=== PATIENT | female | born 1930 | race Caucasian/White ===

== ENCOUNTER 2019-03-08 10:25 | Inpatient (IN) | payer MEDICARE ==
[~2019-03-08] VITALS: Ht 162.6 cm; Wt 71.2 kg
[2019-03-08] MEDS ORDERED: TETANUS AND DIPHTHERIA TOX/PF 0.5 ML DISP.SYRIN. VAX IM ONE (10:45)
--- NOTE | 2019-03-08 10:56 | RAD ---
Portable chest, 03/08/2019: HISTORY: Syncope, fall The heart is at the upper limits of normal in size. There is calcific plaquing the aorta. The pulmonary vascularity is normal. No pulmonary infiltrate is seen. There is no evidence of pleural fluid. The bony structures are demineralized. Scattered degenerative changes are present in the spine and at both shoulders. IMPRESSION: No acute cardiopulmonary abnormality is detected. Electronically signed by: Festus Max MD (03/08/2019 10:52 AM) [facility]
[2019-03-08 11:29] LABS: CALCIUM 8.9 mg/dL (8.5-10.1); GFR 52.2; POTASSIUM 3.9 mmol/L (3.5-5.1)
[2019-03-08 11:33] LABS: BASO # 0.1 x10^3/uL (0.0-0.2); BASO % 1 % (0-3); EOS # 0.3 x10^3/uL (0.0-0.7); EOS % 5 % (0-3); HEMATOCRIT 40.5 % (36.0-47.0); HEMOGLOBIN 13.3 g/dL (12.0-15.5); LYMPH # 0.7 x10^3/uL (1.0-4.8); LYMPH % 10 % (24-48); MEAN CORPUSCULAR HEMOGLOBIN 29 pg (25-35); MEAN CORPUSCULAR HGB CONC 33 g/dL (31-37); MEAN CORPUSCULAR VOLUME 90 fL (79-100); MONO # 0.3 x10^3/uL (0.0-1.1); MONO % 5 % (0-9); NEUT # 5.5 x10^3uL (1.8-7.7); NEUT % 79 % (31-73); PLATELET COUNT 148 x10^3/uL (140-400); RED BLOOD COUNT 4.52 x10^6/uL (3.50-5.40); RED CELL DISTRIBUTION WIDTH 14.2 % (11.5-14.5); WHITE BLOOD COUNT 6.9 x10^3/uL (4.0-11.0)
[2019-03-08 11:37] LABS: ALBUMIN 3.5 g/dL (3.4-5.0); ALBUMIN/GLOBULIN RATIO 1.1 (1.0-1.7); TOTAL BILIRUBIN 0.7 mg/dL (0.2-1.0); TOTAL PROTEIN 6.7 g/dL (6.4-8.2)
--- NOTE | 2019-03-08 12:19 | RAD ---
CT of the head without contrast, 03/08/2019: HISTORY: Head and neck trauma There is moderate cerebral atrophy. The ventricles are within normal limits in size. There is no shift of the midline structures. There is no evidence of acute intracranial hemorrhage or mass effect. Faint bilateral deep white matter lucencies are noted compatible with chronic ischemic change. No abnormal extra-axial fluid collection or mass is seen. IMPRESSION: 1. Faint bilateral deep white matter lucencies compatible with chronic ischemic change. 2. No acute intracranial abnormality is detected. CT of the facial bones without contrast, 03/08/2019: Noncontrast scans were obtained with multiplanar reconstructions produced. No facial bone fracture is identified. There is mild mucosal thickening in the maxillary sinuses. No free fluid is evident in the sinuses. The orbital contents are unremarkable. IMPRESSION: No acute facial bone abnormality is detected. PQRS Compliance Statement: One or more of the following individualized dose reduction techniques were utilized for this examination: 1. Automated exposure control 2. Adjustment of the mA and/or kV according to patient size 3. Use of iterative reconstruction technique Electronically signed by: Festus Max MD (03/08/2019 12:16 PM) [facility]
--- NOTE | 2019-03-08 12:19 | EKG ---
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
--- NOTE | 2019-03-08 12:24 | RAD ---
CT of the cervical spine without contrast, 03/08/2019: HISTORY: Fall, injury Noncontrast scans were obtained with multiplanar reconstructions produced. There is a mild left convexity cervical scoliosis. There is mild disc space narrowing at multiple levels with mild scattered marginal spurs. There are mild degenerative changes involving scattered facet joints bilaterally. There is fusion of the right facet joints at C3-4. The posterior disc margins are not adequately visualized due to artifacts. No fracture or dislocation is identified. No high-grade central spinal stenosis is evident. There is mild calcific plaquing at the carotid bifurcations. IMPRESSION: 1. Mild cervical scoliosis. 2. Mild multilevel degenerative change. 3. No acute bony abnormality is detected. PQRS Compliance Statement: One or more of the following individualized dose reduction techniques were utilized for this examination: 1. Automated exposure control 2. Adjustment of the mA and/or kV according to patient size 3. Use of iterative reconstruction technique Electronically signed by: Festus Max MD (03/08/2019 12:21 PM) [facility]
--- NOTE | 2019-03-08 12:47 | PHYS DOC ---
Past Medical History Past Medical History: Anxiety, Hypothyroid Past Surgical History: Cholecystectomy, Hysterectomy, Other Additional Past Surgical Histo: TUBAL Alcohol Use: None Drug Use: None Adult General Chief Complaint Chief Complaint: MECHANICAL FALL HPI HPI 88-year-old female presents after syncopal episode. Patient states she was at the sink washing dishes and the next thing she knew she had fallen on the ground. She didn't hit her head and neck. She complains of a headache and neck pain. She denies any lateralizing weakness. She does have some scrapes on her arms from broken glass that was found next to her. I'm unsure exactly how long she laid in the floor but she did come in via EMS. She is not had any fever chills or sweats that she recalls. She denies any preceding symptoms such as severe headache chest pain palpitations or shortness of breath. She does not recall passing out like this in the past.[] Review of Systems Review of Systems Constitutional: Denies fever or chills [] Eyes: Denies change in visual acuity, redness, or eye pain [] HENT: Denies nasal congestion or sore throat [] Respiratory: Denies cough or shortness of breath [] Cardiovascular: No additional information not addressed in HPI [] GI: Denies abdominal pain, nausea, vomiting, bloody stools or diarrhea [] : Denies dysuria or hematuria [] Musculoskeletal: Denies back pain or joint pain [] Integument: Per history of present illness Neurologic: Denies headache, focal weakness or sensory changes [] Endocrine: Denies polyuria or polydipsia [] All other systems were reviewed and found to be within normal limits, except as documented in this note. Current Medications Current Medications Current Medications Medications (Trade) Dose Ordered Sig/Sylvia Start Time Stop Time Status Last Admin Dose Admin Tetanus/ Diphtheria Toxoids (Tenivac Syringe) 0.5 ml ONCE ONCE 03/08/19 10:45 03/08/19 11:23 DC 03/08/19 12:04 0.5 ML Allergies Allergies Allergies Coded Allergies Type Severity Reaction Last Updated Verified Penicillins Allergy Unknown PATIENT STATES IT WAS YEARS AGO AND SHE DOES NOT REMEMBER 03/08/19 Yes Physical Exam Physical Exam Constitutional: Well developed, well nourished, no acute distress, non-toxic appearance. [] HENT: Normocephalic, atraumatic, bilateral external ears normal, oropharynx ricki st, no oral exudates, nose normal. [] Eyes: PERRLA, EOMI, conjunctiva normal, no discharge. [] Neck: Normal range of motion, no tenderness, supple, no stridor. [] Cardiovascular:Heart rate regular rhythm, no murmur [] Lungs & Thorax: Bilateral breath sounds clear to auscultation [] Abdomen: Bowel sounds normal, soft, no tenderness, no masses, no pulsatile masses. [] Skin: Multiple minor scrapes and skin abrasions to both arms left greater than right[] Back: No tenderness, no CVA tenderness. [] Extremities: No tenderness, no cyanosis, no clubbing, ROM intact, no edema. [] Neurologic: Alert and oriented to person place and time no lateralizing neurologic weakness. [] Psychologic: Affect normal, judgement normal, mood normal. [] Current Patient Data Vital Signs Vital Signs Date Time Temp Pulse Resp B/P (MAP) Pulse Ox O2 Delivery O2 Flow Rate FiO2 03/08/19 10:25 97.5 78 14 184/84 (117) 96 Room Air 97.5 Lab Values Laboratory Tests Test 03/08/19 11:06 White Blood Count 6.9 x10^3/uL (4.0-11.0) Red Blood Count 4.52 x10^6/uL (3.50-5.40) Hemoglobin 13.3 g/dL (12.0-15.5) Hematocrit 40.5 % (36.0-47.0) Mean Corpuscular Volume 90 fL (79-100) Mean Corpuscular Hemoglobin 29 pg (25-35) Mean Corpuscular Hemoglobin Concent 33 g/dL (31-37) Red Cell Distribution Width 14.2 % (11.5-14.5) Platelet Count 148 x10^3/uL (140-400) Neutrophils (%) (Auto) 79 % (31-73) H Lymphocytes (%) (Auto) 10 % (24-48) L Monocytes (%) (Auto) 5 % (0-9) Eosinophils (%) (Auto) 5 % (0-3) H Basophils (%) (Auto) 1 % (0-3) Neutrophils # (Auto) 5.5 x10^3uL (1.8-7.7) Lymphocytes # (Auto) 0.7 x10^3/uL (1.0-4.8) L Monocytes # (Auto) 0.3 x10^3/uL (0.0-1.1) Eosinophils # (Auto) 0.3 x10^3/uL (0.0-0.7) Basophils # (Auto) 0.1 x10^3/uL (0.0-0.2) Sodium Level 142 mmol/L (136-145) Potassium Level 3.9 mmol/L (3.5-5.1) Chloride Level 104 mmol/L (98-107) Carbon Dioxide Level 27 mmol/L (21-32) Anion Gap 11 (6-14) Blood Urea Nitrogen 17 mg/dL (7-20) Creatinine 1.0 mg/dL (0.6-1.0) Estimated GFR (Cockcroft-Gault) 52.2 BUN/Creatinine Ratio 17 (6-20) Glucose Level 113 mg/dL (70-99) H Calcium Level 8.9 mg/dL (8.5-10.1) Total Bilirubin 0.7 mg/dL (0.2-1.0) Aspartate Amino Transferase (AST) 21 U/L (15-37) Alanine Aminotransferase (ALT) 20 U/L (14-59) Alkaline Phosphatase 65 U/L (46-116) Creatine Kinase 45 U/L (26-192) Troponin I Quantitative < 0.017 ng/mL (0.000-0.055) Total Protein 6.7 g/dL (6.4-8.2) Albumin 3.5 g/dL (3.4-5.0) Albumin/Globulin Ratio 1.1 (1.0-1.7) Laboratory Tests 03/08/19 11:06 Laboratory Tests 03/08/19 11:06 EKG EKG [EKG: Normal sinus rhythm rate of [address]-T changes] Radiology/Procedures Radiology/Procedures []CT of the cervical spine without contrast, 03/08/2019: HISTORY: Fall, injury Noncontrast scans were obtained with multiplanar reconstructions produced. There is a mild left convexity cervical scoliosis. There is mild disc space narrowing at multiple levels with mild scattered marginal spurs. There are mild degenerative changes involving scattered facet joints bilaterally. There is fusion of the right facet joints at C3-4. The posterior disc margins are not adequately visualized due to artifacts. No fracture or dislocation is identified. No high-grade central spinal stenosis is evident. There is mild calcific plaquing at the carotid bifurcations. IMPRESSION: 1. Mild cervical scoliosis. 2. Mild multilevel degenerative change. 3. No acute bony abnormality is detected. Impressions: PROCEDURE: CT HEAD AND MAXILLOFACIAL WO CT of the head without contrast, 03/08/2019: HISTORY: Head and neck trauma There is moderate cerebral atrophy. The ventricles are within normal limits in size. There is no shift of the midline structures. There is no evidence of acute intracranial hemorrhage or mass effect. Faint bilateral deep white matter lucencies are noted compatible with chronic ischemic change. No abnormal extra-axial fluid collection or mass is seen. IMPRESSION: 1. Faint bilateral deep white matter lucencies compatible with chronic ischemic change. 2. No acute intracranial abnormality is detected. Course & Med Decision Making Course & Med Decision Making Pertinent Labs and Imaging studies reviewed. (See chart for details) [ED course: Evaluation reveals an 88-year-old female that had a syncopal episode. Preliminary workup looks negative. CT of her head and neck and maxillofacial was negative.] Dragon Disclaimer Dragon Disclaimer This electronic medical record was generated, in whole or in part, using a voice recognition dictation system. Departure Departure Impression: Primary Impression: Syncope and collapse Disposition: 09 ADMITTED INPATIENT Admitting Physician: Liat Zaldivar Condition: STABLE Referrals: MAK GONZALEZ Jr, MD (PCP) JOSE BARTHOLOMEW DO March 08, 2019 12:46
[2019-03-08] MEDS ORDERED: cloNIDine HCL 0.1 MG TABLET PO PRN (13:00)
[2019-03-08] MEDS ORDERED: hydrALAZINE 20 MG/ML VIAL. IVP PRN (13:30)
--- NOTE | 2019-03-08 13:31 | PDOC1 ---
History and Physical Date of Admission Date of Admission DATE: 03/08/19 TIME: 13:24 Identification/Chief Complaint Chief Complaint Passed out and fell at home while washing the dishes Source Source: Caregiver, Chart review, Patient History of Present Illness History of Present Illness 88-year-old female who lives alone at home and uses no assistive device of ambulation, was washing dishes, no prodrome and she felt weak and passed out and LOC. Some minor skin abrasions all over, minor bleeding unsure from IV site. NOt on blood thinners at home She did bite her lip. She denies any presyncopal symptoms. She was unable to get up and called EMS. She's not able to get up because of weakness. We are unsure if she had broken bones but does not seem likely. She only takes 2 medications at home daily Zoloft and thyroid medication. No known arrhythmia or CAD. She does not complain of any symptoms afterwards just weakness There Was no loss of bowel or bladder incontinence but she does have a lower lip laceration Blood work and chest x-ray cervical neck CT head CT are so far unremarkable. Patient admitted for syncope workup. Daughter at bedside and agreeable with admission Blood pressure 180s currently at the ER Past Medical History Psych: Anxiety, Depression Endocrine: Hypothyroidism Past Surgical History Past Surgical History: No pertinent history Family History Family History: No Significant Social History Smoke: No ALCOHOL: none Drugs: None Current Problem List Problem List Problems Medical Problems: (1) Syncope and collapse Status: Acute Current Medications Current Medications Current Medications Tetanus/ Diphtheria Toxoids (Tenivac Syringe) 0.5 ml ONCE ONCE VAX IM Last administered on 03/08/19at 12:04; Start 03/08/19 at 10:45; Stop 03/08/19 at 11:23; Status DC Sodium Chloride 1,000 ml @ 100 mls/hr Q10H IV ; Start 03/08/19 at 12:47; Stop 03/09/19 at 12:46 Clonidine HCl (Catapres) 0.1 mg PRN Q1HR PRN PO HYPERTENSION, SEE COMMENTS; Start 03/08/19 at 13:00 Allergies Allergies: Coded Allergies: Penicillins (Verified Allergy, Unknown, PATIENT STATES IT WAS YEARS AGO AND SHE DOES NOT REMEMBER, 03/08/19) ROS Review of System generalized weakness Physical Exam General: No acute distress, Other (but weak looking) HEENT: PERRLA, EOMI Lungs: Clear to auscultation, Normal air movement Heart: S1S2, RRR, no thrills, no rubs, no gallops, no murmurs, murmurs, no jug vein distention Cardiovascular: S1, S2 Breasts: Normal, Rt breast nml w/o mass, Lt breast nml w/o mass, Nipples normal Abdomen: Normal bowel sounds, Soft, No tenderness, No hepatosplenomegaly, No masses Male Genitals Exam: normal genitalia, normal prostate Rectal Exam: not examined PELVIC: Nml ext genitalia Extremities: No clubbing, No cyanosis, No edema, Normal pulses, No tenderness/swelling Skin: Other (senile skin turgor, some minor skin abrasions ) Neuro: Normal speech, Normal tone, Sensation intact, Cranial nerves 3-12 NL, Reflexes 2+, Other Psych/Mental Status: Mental status NL, Mood NL Vitals Vitals Vital Signs Date Time Temp Pulse Resp B/P (MAP) Pulse Ox O2 Delivery O2 Flow Rate FiO2 03/08/19 10:25 97.5 78 14 184/84 (117) 96 Room Air 97.5 Labs Labs Laboratory Tests Test 03/08/19 11:06 White Blood Count 6.9 x10^3/uL (4.0-11.0) Red Blood Count 4.52 x10^6/uL (3.50-5.40) Hemoglobin 13.3 g/dL (12.0-15.5) Hematocrit 40.5 % (36.0-47.0) Mean Corpuscular Volume 90 fL (79-100) Mean Corpuscular Hemoglobin 29 pg (25-35) Mean Corpuscular Hemoglobin Concent 33 g/dL (31-37) Red Cell Distribution Width 14.2 % (11.5-14.5) Platelet Count 148 x10^3/uL (140-400) Neutrophils (%) (Auto) 79 % (31-73) Lymphocytes (%) (Auto) 10 % (24-48) Monocytes (%) (Auto) 5 % (0-9) Eosinophils (%) (Auto) 5 % (0-3) Basophils (%) (Auto) 1 % (0-3) Neutrophils # (Auto) 5.5 x10^3uL (1.8-7.7) Lymphocytes # (Auto) 0.7 x10^3/uL (1.0-4.8) Monocytes # (Auto) 0.3 x10^3/uL (0.0-1.1) Eosinophils # (Auto) 0.3 x10^3/uL (0.0-0.7) Basophils # (Auto) 0.1 x10^3/uL (0.0-0.2) Sodium Level 142 mmol/L (136-145) Potassium Level 3.9 mmol/L (3.5-5.1) Chloride Level 104 mmol/L (98-107) Carbon Dioxide Level 27 mmol/L (21-32) Anion Gap 11 (6-14) Blood Urea Nitrogen 17 mg/dL (7-20) Creatinine 1.0 mg/dL (0.6-1.0) Estimated GFR (Cockcroft-Gault) 52.2 BUN/Creatinine Ratio 17 (6-20) Glucose Level 113 mg/dL (70-99) Calcium Level 8.9 mg/dL (8.5-10.1) Total Bilirubin 0.7 mg/dL (0.2-1.0) Aspartate Amino Transf (AST/SGOT) 21 U/L (15-37) Alanine Aminotransferase (ALT/SGPT) 20 U/L (14-59) Alkaline Phosphatase 65 U/L (46-116) Creatine Kinase 45 U/L (26-192) Troponin I Quantitative < 0.017 ng/mL (0.000-0.055) Total Protein 6.7 g/dL (6.4-8.2) Albumin 3.5 g/dL (3.4-5.0) Albumin/Globulin Ratio 1.1 (1.0-1.7) Laboratory Tests Test 03/08/19 11:06 White Blood Count 6.9 x10^3/uL (4.0-11.0) Red Blood Count 4.52 x10^6/uL (3.50-5.40) Hemoglobin 13.3 g/dL (12.0-15.5) Hematocrit 40.5 % (36.0-47.0) Mean Corpuscular Volume 90 fL (79-100) Mean Corpuscular Hemoglobin 29 pg (25-35) Mean Corpuscular Hemoglobin Concent 33 g/dL (31-37) Red Cell Distribution Width 14.2 % (11.5-14.5) Platelet Count 148 x10^3/uL (140-400) Neutrophils (%) (Auto) 79 % (31-73) Lymphocytes (%) (Auto) 10 % (24-48) Monocytes (%) (Auto) 5 % (0-9) Eosinophils (%) (Auto) 5 % (0-3) Basophils (%) (Auto) 1 % (0-3) Neutrophils # (Auto) 5.5 x10^3uL (1.8-7.7) Lymphocytes # (Auto) 0.7 x10^3/uL (1.0-4.8) Monocytes # (Auto) 0.3 x10^3/uL (0.0-1.1) Eosinophils # (Auto) 0.3 x10^3/uL (0.0-0.7) Basophils # (Auto) 0.1 x10^3/uL (0.0-0.2) Sodium Level 142 mmol/L (136-145) Potassium Level 3.9 mmol/L (3.5-5.1) Chloride Level 104 mmol/L (98-107) Carbon Dioxide Level 27 mmol/L (21-32) Anion Gap 11 (6-14) Blood Urea Nitrogen 17 mg/dL (7-20) Creatinine 1.0 mg/dL (0.6-1.0) Estimated GFR (Cockcroft-Gault) 52.2 BUN/Creatinine Ratio 17 (6-20) Glucose Level 113 mg/dL (70-99) Calcium Level 8.9 mg/dL (8.5-10.1) Total Bilirubin 0.7 mg/dL (0.2-1.0) Aspartate Amino Transf (AST/SGOT) 21 U/L (15-37) Alanine Aminotransferase (ALT/SGPT) 20 U/L (14-59) Alkaline Phosphatase 65 U/L (46-116) Creatine Kinase 45 U/L (26-192) Troponin I Quantitative < 0.017 ng/mL (0.000-0.055) Total Protein 6.7 g/dL (6.4-8.2) Albumin 3.5 g/dL (3.4-5.0) Albumin/Globulin Ratio 1.1 (1.0-1.7) VTE Prophylaxis Ordered VTE Prophylaxis Devices: Yes VTE Pharmacological Prophylaxi: Yes Assessment/Plan Assessment/Plan Syncope while washing dishes, differentials include cardiac in origin versus vasovagal vasovagal versus rule out seizure Lower lip laceration depression/anxiety NOS - on medication-I'm still awaiting home meds, unsure if this is hypo-or hyperthyroidism Depression/anxiety NOS on Zoloft-she only takes when necessary Elevated blood pressure with no diagnosis of hypertension PLAN: Hook to telemetry Check orthostatics neuro consult, cards consult Okay to resume home meds whatever that may be-home meds are still not yet put in PT OT Regular diet hydralazine prn IV Monitor that high blood pressure FULL CODE HIgh fall risk dw dts, seen at SAVANNA GONZALEZ MD March 08, 2019 13:31
[2019-03-08] MEDS ORDERED: SERT100T PO (13:33)
[2019-03-08] MEDS ORDERED: LEVO100T5 PO (13:33)
[2019-03-08 13:45] LABS: BILIRUBIN,URINE NEGATIVE (NEG); CLARITY,URINE CLEAR; COLOR,URINE YELLOW; NITRITE,URINE NEGATIVE (NEG); PH,URINE 6.5; PROTEIN,URINE NEGATIVE (NEG-TRACE); UROBILINOGEN,URINE 0.2 mg/dL (0.2 mg/dL)
[2019-03-08 13:53] LABS: BACTERIA,URINE 0 /HPF (0-FEW); RBC,URINE 0 /HPF (0-2); WBC,URINE 0 /HPF (0-4)
[2019-03-08 14:00] VITALS: BP 193/80
[2019-03-08 14:34] VITALS: BP 175/74
[2019-03-08 14:36] VITALS: BP 171/75
[2019-03-08 14:37] VITALS: BP 156/72
--- NOTE | 2019-03-08 15:13 | PDOC2 ---
PHOENIX STORM PITCH FILLER 03/08/19 1513: CARDIAC CONSULT DATE OF CONSULT Date of Consult DATE: 03/08/19 TIME: 14:37 REASON FOR CONSULT Reason for Consult: Syncope REFERRING PHYSICIAN Referring Physician: Kayley SOURCE Source: Caregiver (son and daughters), Chart review, Patient HISTORY OF PRESENT ILLNESS HISTORY OF PRESENT ILLNESS This is a pleasant 88 yo female admitted for complains of passing out and fall. Reports that she was at the kitchen tyring to clean her left arm which appears to be an insect bite that she noticed this morning, cleaning it with baking soda when she felt tired and the next thing she remembered was she on the floor. There was no visual or auditory disturbances, facial droop, confusion prior to her falling. It is unclear the duration of unconsciousness. No bowel or bladder incontinence. There is no unilateral weakness. She is [place], also has essential tremors. No known hx of CVA, arrhythmias, cardiac disease and no past hx of seizures. She has not passed out or had any significant falls in the last yr. She lives alone and does not utilize an ambulation device such as a walker and still drives at short distances according to her daughter. One of her children lives about 10 minutes away. In the process of her fall she obtained a right wrist laceration, split at the tip of her tongue, left shoulder abrasion but no fractures and claims that she may have hit the table and .Denies any seizure episodes but did obtain split tip of her tongue but no significant bruising to her face or chin. She drinks adequate amount of fluids per her daughter about 64 oz per day. She does not take any BP meds but does take zoloft and thyroid med. She does have BPPV which gets triggered at times when she turns her head to the right. Denies any recent infection, no fever chills, nausea, vomiting, diarrhea. Denies any CP, SOA or palpitations and no frequent dizziness. There was no pruritic symptoms, urticaria, flushed sensation, wheezing that would suggest vasodilatory reaction relating to insect bite. PAST MEDICAL HISTORY Cardiovascular: No pertinent hx Pulmonary: No pertinent hx CENTRAL NERVOUS SYSTEM: Vertigo (BPPV), Other (tremors) GI: Hemorrhoids Heme/Onc: No pertinent hx Hepatobiliary: No pertinent hx Psych: Anxiety Musculoskeletal: Osteoarthritis Rheumatologic: No pertinent hx Infectious disease: No pertinent hx ENT: Allergic Rhinitis Renal/: UTI Endocrine: Hypothyroidism Dermatology: No pertinent hx PAST SURGICAL HISTORY Past Surgical History: Cholecystectomy, Hysterectomy FAMILY HISTORY Family History noncontributory to age SOCIAL HISTORY Smoke: No ALCOHOL: none Drugs: None Lives: Alone CURRENT MEDICATIONS CURRENT MEDICATIONS Current Medications Medications (Trade) Dose Ordered Sig/Sylvia Route PRN Reason Start Time Stop Time Status Last Admin Dose Admin Tetanus/ Diphtheria Toxoids (Tenivac Syringe) 0.5 ml ONCE ONCE VAX IM 03/08/19 10:45 03/08/19 11:23 DC 03/08/19 12:04 Clonidine HCl (Catapres) 0.1 mg PRN Q1HR PRN PO HYPERTENSION, SEE COMMENTS 03/08/19 13:00 03/08/19 13:47 ALLERGIES ALLERGIES: Coded Allergies: Penicillins (Verified Allergy, Unknown, PATIENT STATES IT WAS YEARS AGO AND SHE DOES NOT REMEMBER, 03/08/19) ROS Review of System 14 point ROS evaluated with pertinent positives noted per HPI PHYSICAL EXAM General: Alert, Oriented X3, Cooperative, No acute distress HEENT: Atraumatic, Mucous membr. moist/pink, Other (split tip of tongue; [place]) Lungs: Clear to auscultation, Normal air movement Heart: Regular rate (SR), Normal S1, Normal S2, No murmurs Abdomen: Soft, No tenderness Extremities: No cyanosis, No edema Skin: Other (left shoulder abrasion, right wrist laceration with steristrips; LFA wheal) Neuro: Normal speech, Sensation intact, Other (arm tremors) Psych/Mental Status: Mental status NL, Mood NL MUSCULOSKELETAL: Osteoarthritic changes both hands VITALS VITALS Vital Signs Date Time Temp Pulse Resp B/P (MAP) Pulse Ox O2 Delivery O2 Flow Rate FiO2 03/08/19 13:47 73 182/74 03/08/19 12:43 97 03/08/19 10:25 97.5 14 Room Air 97.5 LABS Lab: Laboratory Tests Test 03/08/19 11:06 03/08/19 13:25 White Blood Count 6.9 x10^3/uL (4.0-11.0) Red Blood Count 4.52 x10^6/uL (3.50-5.40) Hemoglobin 13.3 g/dL (12.0-15.5) Hematocrit 40.5 % (36.0-47.0) Mean Corpuscular Volume 90 fL (79-100) Mean Corpuscular Hemoglobin 29 pg (25-35) Mean Corpuscular Hemoglobin Concent 33 g/dL (31-37) Red Cell Distribution Width 14.2 % (11.5-14.5) Platelet Count 148 x10^3/uL (140-400) Neutrophils (%) (Auto) 79 % (31-73) Lymphocytes (%) (Auto) 10 % (24-48) Monocytes (%) (Auto) 5 % (0-9) Eosinophils (%) (Auto) 5 % (0-3) Basophils (%) (Auto) 1 % (0-3) Neutrophils # (Auto) 5.5 x10^3uL (1.8-7.7) Lymphocytes # (Auto) 0.7 x10^3/uL (1.0-4.8) Monocytes # (Auto) 0.3 x10^3/uL (0.0-1.1) Eosinophils # (Auto) 0.3 x10^3/uL (0.0-0.7) Basophils # (Auto) 0.1 x10^3/uL (0.0-0.2) Sodium Level 142 mmol/L (136-145) Potassium Level 3.9 mmol/L (3.5-5.1) Chloride Level 104 mmol/L (98-107) Carbon Dioxide Level 27 mmol/L (21-32) Anion Gap 11 (6-14) Blood Urea Nitrogen 17 mg/dL (7-20) Creatinine 1.0 mg/dL (0.6-1.0) Estimated GFR (Cockcroft-Gault) 52.2 BUN/Creatinine Ratio 17 (6-20) Glucose Level 113 mg/dL (70-99) Calcium Level 8.9 mg/dL (8.5-10.1) Total Bilirubin 0.7 mg/dL (0.2-1.0) Aspartate Amino Transf (AST/SGOT) 21 U/L (15-37) Alanine Aminotransferase (ALT/SGPT) 20 U/L (14-59) Alkaline Phosphatase 65 U/L (46-116) Creatine Kinase 45 U/L (26-192) Troponin I Quantitative < 0.017 ng/mL (0.000-0.055) Total Protein 6.7 g/dL (6.4-8.2) Albumin 3.5 g/dL (3.4-5.0) Albumin/Globulin Ratio 1.1 (1.0-1.7) Thyroid Stimulating Hormone (TSH) 0.890 uIU/mL (0.358-3.74) Urine Collection Type Unknown Urine Color Yellow Urine Clarity Clear Urine pH 6.5 Urine Specific [place] 1.010 Urine Protein Negative mg/dL (NEG-TRACE) Urine Glucose (UA) Negative mg/dL (NEG) Urine Ketones (Stick) Negative mg/dL (NEG) Urine Blood Negative (NEG) Urine Nitrite Negative (NEG) Urine Bilirubin Negative (NEG) Urine Urobilinogen Dipstick 0.2 mg/dL (0.2 mg/dL) Urine Leukocyte Esterase Negative (NEG) Urine RBC 0 /HPF (0-2) Urine WBC 0 /HPF (0-4) Urine Bacteria 0 /HPF (0-FEW) Urine Mucus Slight /LPF ASSESSMENT/PLAN ASSESSMENT/PLAN 1. Syncope with fall: suspect vasovagal vs possible orthostasis. Presentation does not reflect arrhythmia. 2. Traumatic fall: Multiple contusions, split tongue claiming hitting an object but no bruising mandibular or cephalic tinoco. Seizure would still be part of the differential. 3. HTN: labile 4. Hypothyroidism 5. LFA insect bite/wheal: no vasodilatory symptom reaction that would suggest this to be a contributing factor to her syncope. 6. Hx of BPPV/essential tremors Recommendations 1. TSH, TTE 2. Labetolol IV PRN. Norvasc x1. IVF x1. 3. Neurology consult pending 4. OT/PT eval and treat. 5. Repeat orthostatic readings 6. discussed with her children that will need a lifealert if she continues to live alone. 7. x1 pepcid and benadryl, defer further to PCP SHANIKA LU MD 03/08/19 4551: CARDIAC CONSULT ASSESSMENT/PLAN ASSESSMENT/PLAN Patient seen and examined. Agree with FOCUSING MACHINE OPERATOR's assessment and plan. Syncope most probably secondary to orthostasis Agree with intravenous fluids 2-D echo showed normal LV systolic function without any significant structural abnormalities Telemetry did not show any significant arrhythmia so far If orthostasis does not improve, we will consider starting Florinef Thank you for your consultation PHOENIX STORM APRN March 08, 2019 15:13 SHANIKA LU MD March 08, 2019 17:21
[2019-03-08] MEDS ORDERED: amLODIPine BESYLATE 5 MG TABLET PO ONE (15:15)
--- NOTE | 2019-03-08 15:40 | PDOC2 ---
NEUROLOGY CONSULT Date of Admission Date of Admission DATE: 03/08/19 TIME: 15:33 Reason for Consult Reason for Consult: Syncope Referring Physician Referring Physician: Dr. Zaldivar PCP: Dr. Rouse's group Source Source: Chart review, Patient History of Present Illness History of Present Illness The patient is an 88-year-old right-handed female who fainted this morning. She remembers getting up, taking her medications, and then noticing that she had some sort of insect bite on her left arm. She was cleaning it with baking soda and then felt tired and weak in the next thing she remembers she was on the floor. She had not eaten anything yet today. She did bite her lip. There is no incontinence or prolonged postictal confusion but she is not sure how long she was out. She has been having some sinus problems. She denies headache, head inju ry, diplopia, dysphagia, dysarthria, numbness, focal weakness, history of stroke, or seizure. She has had vertigo in the past as well as a long-standing tremor. Past Medical History CENTRAL NERVOUS SYSTEM: Vertigo, Other (essential tremor) Psych: Anxiety Musculoskeletal: Osteoarthritis ENT: Allergic Rhinitis Endocrine: Hypothyroidism Past Surgical History Past Surgical History: Cholecystectomy, Hysterectomy Family History Family History: Other (mother lived to 109) Social History Social History Lives alone, , no alcohol or tobacco, does all of her own cooking, cleaning, finances, daughter takes her shopping Current Medications Current Medications Current Medications Tetanus/ Diphtheria Toxoids (Tenivac Syringe) 0.5 ml ONCE ONCE VAX IM Last administered on 03/08/19at 12:04; Start 03/08/19 at 10:45; Stop 03/08/19 at 11:23; Status DC Sodium Chloride 1,000 ml @ 100 mls/hr Q10H IV ; Start 03/08/19 at 12:47; Stop 03/09/19 at 12:46 Clonidine HCl (Catapres) 0.1 mg PRN Q1HR PRN PO HYPERTENSION, SEE COMMENTS Last administered on 03/08/19at 13:47; Start 03/08/19 at 13:00 Hydralazine HCl (Apresoline Inj) 10 mg PRN Q4HRS PRN IVP ELEVATED BP, SEE COMMENTS; Start 03/08/19 at 13:30 Amlodipine Besylate (Norvasc) 5 mg 1X ONCE PO ; Start 03/08/19 at 15:15; Stop 03/08/19 at 15:16; Status DC Levothyroxine Sodium (Synthroid) 100 mcg DAILY06 PO ; Start 03/09/19 at 09:00 Sertraline HCl (Zoloft) 100 mg DAILY PO ; Start 03/08/19 at 16:00 Active Scripts Active Reported Zoloft (Sertraline Hcl) 100 Mg Tablet 1 Tab PO DAILY Levothyroxine Sodium 100 Mcg Tablet 1 Tab PO DAILY Allergies Allergies: Coded Allergies: Penicillins (Verified Allergy, Unknown, PATIENT STATES IT WAS YEARS AGO AND SHE DOES NOT REMEMBER, 03/08/19) ROS Review of System Negative for fever, chills, weight loss, shortness of breath, chest pain, indigestion, hematochezia, melena, and dysuria. Full 14-point review of systems is negative. Physical Exam Physical Examination General: Well-developed, well-nourished white female in no acute distress HEENT: Normocephalic andatraumatic.Temporal arteriespulsatile and nontender. Neck: Supple without bruit, no meningismus Musculoskeletal: Stability:see neurologic. Gait exam:see neurologic. Tone:see neurologic.Strength:see neurologic. Neurological: Mental Status:intact, orientation, memory, attention span/concentration, language, fund of knowledge normal. Cranial Nerves:Pupils equal and reactive to light, extraocular movements areintact, visual woody are full to confrontation. Facial sensation is normal. There is no facial asymmetry. Vestibulo-ocular reflex is intact. Palate elevates and tongue protrudes in midline. All other cranial related problems are negative except as mentioned before.Reflexes:2+ and symmetric with flexor plantar responses. Motor:5/5 strength with normal tone and bulk. Coordination:Finger-nose finger and [id number] testing are normal. Mild postural limb and head tremors. Rapid alternating movements and fine finger movements are intact. Gait:Arthritic, normal for age. Sensory:Normal pinprick, vibration, light touch, proprioception. Vitals VITALS Vital Signs Date Time Temp Pulse Resp B/P (MAP) Pulse Ox O2 Delivery O2 Flow Rate FiO2 03/08/19 14:37 97 156/72 (100) 03/08/19 14:00 99.5 16 94 Room Air 99.5 Labs Labs Laboratory Tests Test 03/08/19 11:06 03/08/19 13:25 White Blood Count 6.9 x10^3/uL (4.0-11.0) Red Blood Count 4.52 x10^6/uL (3.50-5.40) Hemoglobin 13.3 g/dL (12.0-15.5) Hematocrit 40.5 % (36.0-47.0) Mean Corpuscular Volume 90 fL (79-100) Mean Corpuscular Hemoglobin 29 pg (25-35) Mean Corpuscular Hemoglobin Concent 33 g/dL (31-37) Red Cell Distribution Width 14.2 % (11.5-14.5) Platelet Count 148 x10^3/uL (140-400) Neutrophils (%) (Auto) 79 % (31-73) Lymphocytes (%) (Auto) 10 % (24-48) Monocytes (%) (Auto) 5 % (0-9) Eosinophils (%) (Auto) 5 % (0-3) Basophils (%) (Auto) 1 % (0-3) Neutrophils # (Auto) 5.5 x10^3uL (1.8-7.7) Lymphocytes # (Auto) 0.7 x10^3/uL (1.0-4.8) Monocytes # (Auto) 0.3 x10^3/uL (0.0-1.1) Eosinophils # (Auto) 0.3 x10^3/uL (0.0-0.7) Basophils # (Auto) 0.1 x10^3/uL (0.0-0.2) Sodium Level 142 mmol/L (136-145) Potassium Level 3.9 mmol/L (3.5-5.1) Chloride Level 104 mmol/L (98-107) Carbon Dioxide Level 27 mmol/L (21-32) Anion Gap 11 (6-14) Blood Urea Nitrogen 17 mg/dL (7-20) Creatinine 1.0 mg/dL (0.6-1.0) Estimated GFR (Cockcroft-Gault) 52.2 BUN/Creatinine Ratio 17 (6-20) Glucose Level 113 mg/dL (70-99) Calcium Level 8.9 mg/dL (8.5-10.1) Total Bilirubin 0.7 mg/dL (0.2-1.0) Aspartate Amino Transf (AST/SGOT) 21 U/L (15-37) Alanine Aminotransferase (ALT/SGPT) 20 U/L (14-59) Alkaline Phosphatase 65 U/L (46-116) Creatine Kinase 45 U/L (26-192) Troponin I Quantitative < 0.017 ng/mL (0.000-0.055) Total Protein 6.7 g/dL (6.4-8.2) Albumin 3.5 g/dL (3.4-5.0) Albumin/Globulin Ratio 1.1 (1.0-1.7) Thyroid Stimulating Hormone (TSH) 0.890 uIU/mL (0.358-3.74) Urine Collection Type Unknown Urine Color Yellow Urine Clarity Clear Urine pH 6.5 Urine Specific [place] 1.010 Urine Protein Negative mg/dL (NEG-TRACE) Urine Glucose (UA) Negative mg/dL (NEG) Urine Ketones (Stick) Negative mg/dL (NEG) Urine Blood Negative (NEG) Urine Nitrite Negative (NEG) Urine Bilirubin Negative (NEG) Urine Urobilinogen Dipstick 0.2 mg/dL (0.2 mg/dL) Urine Leukocyte Esterase Negative (NEG) Urine RBC 0 /HPF (0-2) Urine WBC 0 /HPF (0-4) Urine Bacteria 0 /HPF (0-FEW) Urine Mucus Slight /LPF Laboratory Tests Test 03/08/19 11:06 03/08/19 13:25 White Blood Count 6.9 x10^3/uL (4.0-11.0) Red Blood Count 4.52 x10^6/uL (3.50-5.40) Hemoglobin 13.3 g/dL (12.0-15.5) Hematocrit 40.5 % (36.0-47.0) Mean Corpuscular Volume 90 fL (79-100) Mean Corpuscular Hemoglobin 29 pg (25-35) Mean Corpuscular Hemoglobin Concent 33 g/dL (31-37) Red Cell Distribution Width 14.2 % (11.5-14.5) Platelet Count 148 x10^3/uL (140-400) Neutrophils (%) (Auto) 79 % (31-73) Lymphocytes (%) (Auto) 10 % (24-48) Monocytes (%) (Auto) 5 % (0-9) Eosinophils (%) (Auto) 5 % (0-3) Basophils (%) (Auto) 1 % (0-3) Neutrophils # (Auto) 5.5 x10^3uL (1.8-7.7) Lymphocytes # (Auto) 0.7 x10^3/uL (1.0-4.8) Monocytes # (Auto) 0.3 x10^3/uL (0.0-1.1) Eosinophils # (Auto) 0.3 x10^3/uL (0.0-0.7) Basophils # (Auto) 0.1 x10^3/uL (0.0-0.2) Sodium Level 142 mmol/L (136-145) Potassium Level 3.9 mmol/L (3.5-5.1) Chloride Level 104 mmol/L (98-107) Carbon Dioxide Level 27 mmol/L (21-32) Anion Gap 11 (6-14) Blood Urea Nitrogen 17 mg/dL (7-20) Creatinine 1.0 mg/dL (0.6-1.0) Estimated GFR (Cockcroft-Gault) 52.2 BUN/Creatinine Ratio 17 (6-20) Glucose Level 113 mg/dL (70-99) Calcium Level 8.9 mg/dL (8.5-10.1) Total Bilirubin 0.7 mg/dL (0.2-1.0) Aspartate Amino Transf (AST/SGOT) 21 U/L (15-37) Alanine Aminotransferase (ALT/SGPT) 20 U/L (14-59) Alkaline Phosphatase 65 U/L (46-116) Creatine Kinase 45 U/L (26-192) Troponin I Quantitative < 0.017 ng/mL (0.000-0.055) Total Protein 6.7 g/dL (6.4-8.2) Albumin 3.5 g/dL (3.4-5.0) Albumin/Globulin Ratio 1.1 (1.0-1.7) Thyroid Stimulating Hormone (TSH) 0.890 uIU/mL (0.358-3.74) Urine Collection Type Unknown Urine Color Yellow Urine Clarity Clear Urine pH 6.5 Urine Specific [place] 1.010 Urine Protein Negative mg/dL (NEG-TRACE) Urine Glucose (UA) Negative mg/dL (NEG) Urine Ketones (Stick) Negative mg/dL (NEG) Urine Blood Negative (NEG) Urine Nitrite Negative (NEG) Urine Bilirubin Negative (NEG) Urine Urobilinogen Dipstick 0.2 mg/dL (0.2 mg/dL) Urine Leukocyte Esterase Negative (NEG) Urine RBC 0 /HPF (0-2) Urine WBC 0 /HPF (0-4) Urine Bacteria 0 /HPF (0-FEW) Urine Mucus Slight /LPF Images Images CT of the cervical spine without contrast, 03/08/2019: HISTORY: Fall, injury Noncontrast scans were obtained with multiplanar reconstructions produced. There is a mild left convexity cervical scoliosis. There is mild disc space narrowing at multiple levels with mild scattered marginal spurs. There are mild degenerative changes involving scattered facet joints bilaterally. There is fusion of the right facet joints at C3-4. The posterior disc margins are not adequately visualized due to artifacts. No fracture or dislocation is identified. No high-grade central spinal stenosis is evident. There is mild calcific plaquing at the carotid bifurcations. IMPRESSION: 1. Mild cervical scoliosis. 2. Mild multilevel degenerative change. 3. No acute bony abnormality is detected. Assessment/Plan Assessment/Plan Impression: Syncope, probably vasovagal, note that she just had some medications and had not eaten yet, she did bite her lip but otherwise is no evidence of any convulsion. The episode was unwitnessed. Mild essential tremor. Recommendations: Because of unclear nature of the syncope I will check electroencephalogram and carotid Doppler studies Cardiology has ordered echocardiogram Aim for discharge as soon as tomorrow. The Thank you for letting me help the patient's care. OSWALDO VILLATORO MD March 08, 2019 15:40
--- NOTE | 2019-03-08 15:52 | CARD ---
MR#: [id number] Date of Study: 03/08/2019 Ordering Physician: PHOENIX STORM, Referring Physician: SAVANNA MENDOZA, Tech: Evelyne Garcia APPROVED REPORT EXAM: Two-dimensional and M-mode echocardiogram with Doppler and color Doppler. Other Information Quality : AverageHR: 76bpm INDICATION Syncope 2D DIMENSIONS RVDd3.3 (2.9-3.5cm)Left Atrium(2D)3.1 (1.6-4.0cm) IVSd1.3 (0.7-1.1cm)Aortic Root(2D)2.6 (2.0-3.7cm) LVDd4.3 (3.9-5.9cm)LVOT Diameter2.1 (1.8-2.4cm) PWd1.2 (0.7-1.1cm)LVDs3.6 (2.5-4.0cm) FS (%) 16.4 %SV28.2 ml Aortic Valve AoV Peak Tanner.138.3cm/sAoV VTI25.0cm AO Peak GR.7.6mmHgLVOT VTI 19.30cm AO Mean GR.4mmHg Mitral Valve MV E Dhkzozav12.7cm/sMV DECEL [id number] MV A Hysmqtyp73.6cm/sE/A Ratio0.9 TDI Lateral E' P. V6.24cm/sMedial E' P. V4.96cm/s E/Lateral E'11.2E/Medial E'14.1 Tricuspid Valve TR P. Orzvesrx496qa/sRAP FTPAOXCC3ufIy TR Peak Gr.67xzHhFQEL56qxLs Pulmonary Vein S1 Vwqomktn12.8cm/sS2 Ojnoxuzg48.78cm/s D2 Sclcfvti08.8cm/sPVa [id number] LEFT VENTRICLE The left ventricle is normal size. There is mild concentric left ventricular hypertrophy. The left ve ntricular systolic function is normal and the ejection fraction is within normal range. The Ejection Fraction is 55-60%. There is normal LV segmental wall motion. Transmitral Doppler flow pattern is Gra de I-abnormal relaxation pattern. RIGHT VENTRICLE The right ventricle is borderline dilated. There is normal right ventricular wall thickness. The righ t ventricular systolic function is normal. ATRIA The left atrium size is normal. The right atrium size is normal. The interatrial septum is intact wit h no evidence for an atrial septal defect or patent foramen ovale as noted on 2-D or Doppler imaging. AORTIC VALVE The aortic valve is thickened but opens well. Doppler and Color Flow revealed no significant aortic r egurgitation. There is no significant aortic valvular stenosis. MITRAL VALVE The mitral valve is thickened but opens well. There is no evidence of mitral valve prolapse. There is no mitral valve stenosis. Doppler and Color-flow revealed trace mitral regurgitation. TRICUSPID VALVE The tricuspid valve is normal in structure and function. Doppler and Color Flow revealed trace tricus pid regurgitation with an estimated PAP of 38 mmHg. There is no tricuspid valve stenosis. PULMONIC VALVE The pulmonic valve is not well visualized. Doppler and Color Flow revealed no pulmonic valvular regur gitation. GREAT VESSELS The aortic root is normal in size. The IVC is normal in size and collapses >50% with inspiration. PERICARDIAL EFFUSION There is a trace circumferential pericardial effusion with no hemodynamic significance. Critical Notification Critical Value: No <Conclusion> The left ventricle is normal size. The left ventricular systolic function is normal and the ejection fraction is within normal range. The Ejection Fraction is 55-60%. There is mild concentric left ventricular hypertrophy. There is no significant aortic valvular stenosis. Doppler and Color Flow revealed no significant aortic regurgitation. Doppler and Color-flow revealed trace mitral regurgitation. Doppler and Color Flow revealed trace tricuspid regurgitation with an estimated PAP of 38 mmHg. There is a trace circumferential pericardial effusion with no hemodynamic significance. Signed by : Yuri Bridges MD Electronically Approved : 03/08/2019 15:51:57
[2019-03-08] MEDS: SERTRALINE 50 MG TABLET. PO SCH (16:04)
[2019-03-08] MEDS: IV NORMAL SALINE 1000ML BAG 1,000 ML IV SCH (16:05)
--- NOTE | 2019-03-08 16:26 | RAD ---
Carotid ultrasound, 03/08/2019: History: Syncope Duplex evaluation of the carotid arteries in neck was performed including grayscale, color-flow and spectral Doppler analysis. There is mild smooth plaquing at the carotid bifurcations, more so on the right. The peak systolic velocity in the right internal carotid artery is 80 cm/s with an end-diastolic velocity of 22 cm/s and internal carotid to common carotid artery ratio 1.3. The peak systolic velocity in the left internal carotid artery is 97 cm per sec with an end-diastolic velocity of 23 cm/s and an internal carotid to common carotid artery ratio 1.2. These Doppler findings suggest luminal narrowing in the 0-50% diameter range. Antegrade flow is present in the right vertebral artery in the neck. The left vertebral artery demonstrates a combination of antegrade and retrograde flow. This raises the possibility of a developing subclavian steal phenomenon on the left. IMPRESSION: 1. Mild atherosclerotic plaquing at both carotid bifurcations with underlying luminal narrowing in the 0-50% diameter range bilaterally. 2. Abnormal left vertebral Doppler waveform raising the possibility of a developing subclavian steal phenomenon. Note: Stenosis calculations for CTA, MRA and conventional angiography are based upon determination of the distal ICA diameter in accordance with the NASCET methodology. Stenosis calculations for Doppler studies are derived from validated velocity criteria which are known to correlate with NASCET methodology of determining stenosis.
[2019-03-08] MEDS ORDERED: diphenhydrAMINE HCL 25 MG CAPSULE PO ONE (16:30)
[2019-03-08] MEDS ORDERED: FAMOTIDINE 20 MG TABLET. PO ONE (16:30)
[2019-03-08 19:22] VITALS: BP 121/61
[2019-03-08 22:28] VITALS: BP 134/63
[2019-03-09] VITALS (8 sets, daily range): BP systolic 111–130; BP diastolic 55–65
[2019-03-09] MEDS: IV NORMAL SALINE 1000ML BAG 1,000 ML IV SCH (01:21)
[2019-03-09 05:31] LABS: CHOLESTEROL/HDL RATIO 5.1
[2019-03-09] MEDS: SERTRALINE 50 MG TABLET. PO SCH (08:59)
[2019-03-09] MEDS ORDERED: LEVOTHYROXINE 100 MCG TABLET PO SCH (09:00)
--- NOTE | 2019-03-09 09:21 | PDOC ---
[facility] SAIL [employer]KER 03/09/19 0921: CARDIO Progress Notes Date and Time Date of Service 03/09/2019 Time of Evaluation 0900 Subjective Subjective: No Chest Pain, No shortness of breath, No Palpitations Vitals Vitals Vital Signs Date Time Temp Pulse Resp B/P (MAP) Pulse Ox O2 Delivery O2 Flow Rate FiO2 03/09/19 07:00 98.7 65 16 111/59 (76) 95 Room Air 98.7 Weight Weight [ ] Input and Output Intake and Output Intake and Output 03/09/19 07:00 Intake Total 1158 ml Output Total 800 ml Balance 358 ml Intake Oral 250 ml IV Total 908 ml Output Urine Total 800 ml # Voids 2 # Bowel Movements 1 Laboratory Labs Laboratory Tests Test 03/08/19 11:06 03/08/19 13:25 03/08/19 15:55 03/08/19 18:50 White Blood Count 6.9 x10^3/uL (4.0-11.0) Red Blood Count 4.52 x10^6/uL (3.50-5.40) Hemoglobin 13.3 g/dL (12.0-15.5) Hematocrit 40.5 % (36.0-47.0) Mean Corpuscular Volume 90 fL (79-100) Mean Corpuscular Hemoglobin 29 pg (25-35) Mean Corpuscular Hemoglobin Concent 33 g/dL (31-37) Red Cell Distribution Width 14.2 % (11.5-14.5) Platelet Count 148 x10^3/uL (140-400) Neutrophils (%) (Auto) 79 % (31-73) Lymphocytes (%) (Auto) 10 % (24-48) Monocytes (%) (Auto) 5 % (0-9) Eosinophils (%) (Auto) 5 % (0-3) Basophils (%) (Auto) 1 % (0-3) Neutrophils # (Auto) 5.5 x10^3uL (1.8-7.7) Lymphocytes # (Auto) 0.7 x10^3/uL (1.0-4.8) Monocytes # (Auto) 0.3 x10^3/uL (0.0-1.1) Eosinophils # (Auto) 0.3 x10^3/uL (0.0-0.7) Basophils # (Auto) 0.1 x10^3/uL (0.0-0.2) Sodium Level 142 mmol/L (136-145) Potassium Level 3.9 mmol/L (3.5-5.1) Chloride Level 104 mmol/L (98-107) Carbon Dioxide Level 27 mmol/L (21-32) Anion Gap 11 (6-14) Blood Urea Nitrogen 17 mg/dL (7-20) Creatinine 1.0 mg/dL (0.6-1.0) Estimated GFR (Cockcroft-Gault) 52.2 BUN/Creatinine Ratio 17 (6-20) Glucose Level 113 mg/dL (70-99) Calcium Level 8.9 mg/dL (8.5-10.1) Total Bilirubin 0.7 mg/dL (0.2-1.0) Aspartate Amino Transf (AST/SGOT) 21 U/L (15-37) Alanine Aminotransferase (ALT/SGPT) 20 U/L (14-59) Alkaline Phosphatase 65 U/L (46-116) Creatine Kinase 45 U/L (26-192) Troponin I Quantitative < 0.017 ng/mL (0.000-0.055) < 0.017 ng/mL (0.000-0.055) < 0.017 ng/mL (0.000-0.055) Total Protein 6.7 g/dL (6.4-8.2) Albumin 3.5 g/dL (3.4-5.0) Albumin/Globulin Ratio 1.1 (1.0-1.7) Thyroid Stimulating Hormone (TSH) 0.890 uIU/mL (0.358-3.74) Urine Collection Type Unknown Urine Color Yellow Urine Clarity Clear Urine pH 6.5 Urine Specific [facility] 1.010 Urine Protein Negative mg/dL (NEG-TRACE) Urine Glucose (UA) Negative mg/dL (NEG) Urine Ketones (Stick) Negative mg/dL (NEG) Urine Blood Negative (NEG) Urine Nitrite Negative (NEG) Urine Bilirubin Negative (NEG) Urine Urobilinogen Dipstick 0.2 mg/dL (0.2 mg/dL) Urine Leukocyte Esterase Negative (NEG) Urine RBC 0 /HPF (0-2) Urine WBC 0 /HPF (0-4) Urine Bacteria 0 /HPF (0-FEW) Urine Mucus Slight /LPF Test 03/09/19 04:35 Triglycerides Level 88 mg/dL (0-150) Cholesterol Level 187 mg/dL (0-200) LDL Cholesterol, Calculated 132 mg/dL (0-100) VLDL Cholesterol, Calculated 18 mg/dL (0-40) Non-HDL Cholesterol Calculated 150 mg/dL (0-129) HDL Cholesterol 37 mg/dL (40-60) Cholesterol/HDL Ratio 5.1 Physical Exam HEENT: Neck Supple W Full Motion Chest: Symmetric LUNGS: Clear to Auscultation Heart: S1S2, RRR (SR, no significnat ectopies), no jug vein distention Abdomen: Soft N/T Extremities: No Edema, No Calf Tenderness Neurology: alert, oriented, follow commands Assessment Assessment 1. Syncope with fall: suspect vasovagal. Possible left subclavian steal component per carotid duplex. No orthostasis, CSH. No noted arrhythmias overnight. EF and WM nml 2. Traumatic fall with multiple contusions, split tongue possibly from fall 3. HTN: possibly induced by distress, BP has been well controlled overnight. 4. Hypothyroidism: TSH on goal 5. LFA insect bite/wheal: improved. oral antihistamines received yesterday. 6. Hx of BPPV/essential tremors 7. DLP Recommendations 1. EEG pending. May need CTA or MRA, Will check BP to both arms. await neuro input. 2. OT/PT eval and treat. 3. Discussed with her children yesterday that will need a lifealert if she continues to live alone. Will need better supervision 4. Low dose statin and ASA. 5. Encourage HBPM x1 wk at home. Recommend home health SHANIKA LU MD 03/09/19 1553: CARDIO Progress Notes Assessment Assessment Patient seen and examined. Agree with GREENSKEEPER's assessment and plan. Syncope most probably secondary to orthostasis Telemetry did not show any significant arrhythmias 2-D echo showed normal LV systolic function Carotid arterial duplex scan findings with possible subclavian steal noted However, doubt if this is causing her symptoms - reevaluate as an outpatient [facility] STORM APRN March 09, 2019 09:21 SHANIKA LU MD March 09, 2019 15:53
--- NOTE | 2019-03-09 10:49 | PDOC ---
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 Vitals Vitals Vital Signs Date Time Temp Pulse Resp B/P (MAP) Pulse Ox O2 Delivery O2 Flow Rate FiO2 03/09/19 07:10 80 16 122/59 (80) 97 Room Air 03/09/19 07:00 98.7 98.7 Physical Exam General: Alert, Oriented X3, Cooperative, No acute distress Heart: Regular rate (SR), Normal S1, Normal S2, No murmurs Lungs: Clear Abdomen: Soft, No tenderness Extremities: No cyanosis, No edema Skin: No rashes, Other (left shoulder abrasion, right wrist laceration with steristrips; LFA wheal) Labs LABS Laboratory Tests Test 03/08/19 11:06 03/08/19 13:25 03/08/19 15:55 03/08/19 18:50 White Blood Count 6.9 x10^3/uL (4.0-11.0) Red Blood Count 4.52 x10^6/uL (3.50-5.40) Hemoglobin 13.3 g/dL (12.0-15.5) Hematocrit 40.5 % (36.0-47.0) Mean Corpuscular Volume 90 fL (79-100) Mean Corpuscular Hemoglobin 29 pg (25-35) Mean Corpuscular Hemoglobin Concent 33 g/dL (31-37) Red Cell Distribution Width 14.2 % (11.5-14.5) Platelet Count 148 x10^3/uL (140-400) Neutrophils (%) (Auto) 79 % (31-73) Lymphocytes (%) (Auto) 10 % (24-48) Monocytes (%) (Auto) 5 % (0-9) Eosinophils (%) (Auto) 5 % (0-3) Basophils (%) (Auto) 1 % (0-3) Neutrophils # (Auto) 5.5 x10^3uL (1.8-7.7) Lymphocytes # (Auto) 0.7 x10^3/uL (1.0-4.8) Monocytes # (Auto) 0.3 x10^3/uL (0.0-1.1) Eosinophils # (Auto) 0.3 x10^3/uL (0.0-0.7) Basophils # (Auto) 0.1 x10^3/uL (0.0-0.2) Sodium Level 142 mmol/L (136-145) Potassium Level 3.9 mmol/L (3.5-5.1) Chloride Level 104 mmol/L (98-107) Carbon Dioxide Level 27 mmol/L (21-32) Anion Gap 11 (6-14) Blood Urea Nitrogen 17 mg/dL (7-20) Creatinine 1.0 mg/dL (0.6-1.0) Estimated GFR (Cockcroft-Gault) 52.2 BUN/Creatinine Ratio 17 (6-20) Glucose Level 113 mg/dL (70-99) Calcium Level 8.9 mg/dL (8.5-10.1) Total Bilirubin 0.7 mg/dL (0.2-1.0) Aspartate Amino Transf (AST/SGOT) 21 U/L (15-37) Alanine Aminotransferase (ALT/SGPT) 20 U/L (14-59) Alkaline Phosphatase 65 U/L (46-116) Creatine Kinase 45 U/L (26-192) Troponin I Quantitative < 0.017 ng/mL (0.000-0.055) < 0.017 ng/mL (0.000-0.055) < 0.017 ng/mL (0.000-0.055) Total Protein 6.7 g/dL (6.4-8.2) Albumin 3.5 g/dL (3.4-5.0) Albumin/Globulin Ratio 1.1 (1.0-1.7) Thyroid Stimulating Hormone (TSH) 0.890 uIU/mL (0.358-3.74) Urine Collection Type Unknown Urine Color Yellow Urine Clarity Clear Urine pH 6.5 Urine Specific [place] 1.010 Urine Protein Negative mg/dL (NEG-TRACE) Urine Glucose (UA) Negative mg/dL (NEG) Urine Ketones (Stick) Negative mg/dL (NEG) Urine Blood Negative (NEG) Urine Nitrite Negative (NEG) Urine Bilirubin Negative (NEG) Urine Urobilinogen Dipstick 0.2 mg/dL (0.2 mg/dL) Urine Leukocyte Esterase Negative (NEG) Urine RBC 0 /HPF (0-2) Urine WBC 0 /HPF (0-4) Urine Bacteria 0 /HPF (0-FEW) Urine Mucus Slight /LPF Test 03/09/19 04:35 Triglycerides Level 88 mg/dL (0-150) Cholesterol Level 187 mg/dL (0-200) LDL Cholesterol, Calculated 132 mg/dL (0-100) VLDL Cholesterol, Calculated 18 mg/dL (0-40) Non-HDL Cholesterol Calculated 150 mg/dL (0-129) HDL Cholesterol 37 mg/dL (40-60) Cholesterol/HDL Ratio 5.1 Review of Systems Review of Systems Complains of weakness and hunger Assessment and Plan Assessmemt and Plan Problems Medical Problems: (1) Syncope and collapse Status: Acute Syncope with fall: suspect vasovagal. Possible left subclavian steal component per carotid duplex. Multiple contusions, split tongue possibly from fall HTN Hypothyroidism: TSH on goal Insect bite Hx of BPPV/essential tremors DLP Debility Plan Cardiac monitoring Wound care DVT prophylaxis PT OT Home meds Frequent labs Patient prefers to go home with home healt instead of still care home Appreciate cardiology input Comment Review of Relevant I have reviewed the following items clau (where applicable) has been applied. Labs Laboratory Tests Test 03/08/19 11:06 03/08/19 13:25 03/08/19 15:55 03/08/19 18:50 White Blood Count 6.9 x10^3/uL (4.0-11.0) Red Blood Count 4.52 x10^6/uL (3.50-5.40) Hemoglobin 13.3 g/dL (12.0-15.5) Hematocrit 40.5 % (36.0-47.0) Mean Corpuscular Volume 90 fL (79-100) Mean Corpuscular Hemoglobin 29 pg (25-35) Mean Corpuscular Hemoglobin Concent 33 g/dL (31-37) Red Cell Distribution Width 14.2 % (11.5-14.5) Platelet Count 148 x10^3/uL (140-400) Neutrophils (%) (Auto) 79 % (31-73) Lymphocytes (%) (Auto) 10 % (24-48) Monocytes (%) (Auto) 5 % (0-9) Eosinophils (%) (Auto) 5 % (0-3) Basophils (%) (Auto) 1 % (0-3) Neutrophils # (Auto) 5.5 x10^3uL (1.8-7.7) Lymphocytes # (Auto) 0.7 x10^3/uL (1.0-4.8) Monocytes # (Auto) 0.3 x10^3/uL (0.0-1.1) Eosinophils # (Auto) 0.3 x10^3/uL (0.0-0.7) Basophils # (Auto) 0.1 x10^3/uL (0.0-0.2) Sodium Level 142 mmol/L (136-145) Potassium Level 3.9 mmol/L (3.5-5.1) Chloride Level 104 mmol/L (98-107) Carbon Dioxide Level 27 mmol/L (21-32) Anion Gap 11 (6-14) Blood Urea Nitrogen 17 mg/dL (7-20) Creatinine 1.0 mg/dL (0.6-1.0) Estimated GFR (Cockcroft-Gault) 52.2 BUN/Creatinine Ratio 17 (6-20) Glucose Level 113 mg/dL (70-99) Calcium Level 8.9 mg/dL (8.5-10.1) Total Bilirubin 0.7 mg/dL (0.2-1.0) Aspartate Amino Transf (AST/SGOT) 21 U/L (15-37) Alanine Aminotransferase (ALT/SGPT) 20 U/L (14-59) Alkaline Phosphatase 65 U/L (46-116) Creatine Kinase 45 U/L (26-192) Troponin I Quantitative < 0.017 ng/mL (0.000-0.055) < 0.017 ng/mL (0.000-0.055) < 0.017 ng/mL (0.000-0.055) Total Protein 6.7 g/dL (6.4-8.2) Albumin 3.5 g/dL (3.4-5.0) Albumin/Globulin Ratio 1.1 (1.0-1.7) Thyroid Stimulating Hormone (TSH) 0.890 uIU/mL (0.358-3.74) Urine Collection Type Unknown Urine Color Yellow Urine Clarity Clear Urine pH 6.5 Urine Specific [place] 1.010 Urine Protein Negative mg/dL (NEG-TRACE) Urine Glucose (UA) Negative mg/dL (NEG) Urine Ketones (Stick) Negative mg/dL (NEG) Urine Blood Negative (NEG) Urine Nitrite Negative (NEG) Urine Bilirubin Negative (NEG) Urine Urobilinogen Dipstick 0.2 mg/dL (0.2 mg/dL) Urine Leukocyte Esterase Negative (NEG) Urine RBC 0 /HPF (0-2) Urine WBC 0 /HPF (0-4) Urine Bacteria 0 /HPF (0-FEW) Urine Mucus Slight /LPF Test 03/09/19 04:35 Triglycerides Level 88 mg/dL (0-150) Cholesterol Level 187 mg/dL (0-200) LDL Cholesterol, Calculated 132 mg/dL (0-100) VLDL Cholesterol, Calculated 18 mg/dL (0-40) Non-HDL Cholesterol Calculated 150 mg/dL (0-129) HDL Cholesterol 37 mg/dL (40-60) Cholesterol/HDL Ratio 5.1 Laboratory Tests Test 03/08/19 11:06 03/08/19 13:25 03/08/19 15:55 03/08/19 18:50 White Blood Count 6.9 x10^3/uL (4.0-11.0) Red Blood Count 4.52 x10^6/uL (3.50-5.40) Hemoglobin 13.3 g/dL (12.0-15.5) Hematocrit 40.5 % (36.0-47.0) Mean Corpuscular Volume 90 fL (79-100) Mean Corpuscular Hemoglobin 29 pg (25-35) Mean Corpuscular Hemoglobin Concent 33 g/dL (31-37) Red Cell Distribution Width 14.2 % (11.5-14.5) Platelet Count 148 x10^3/uL (140-400) Neutrophils (%) (Auto) 79 % (31-73) Lymphocytes (%) (Auto) 10 % (24-48) Monocytes (%) (Auto) 5 % (0-9) Eosinophils (%) (Auto) 5 % (0-3) Basophils (%) (Auto) 1 % (0-3) Neutrophils # (Auto) 5.5 x10^3uL (1.8-7.7) Lymphocytes # (Auto) 0.7 x10^3/uL (1.0-4.8) Monocytes # (Auto) 0.3 x10^3/uL (0.0-1.1) Eosinophils # (Auto) 0.3 x10^3/uL (0.0-0.7) Basophils # (Auto) 0.1 x10^3/uL (0.0-0.2) Sodium Level 142 mmol/L (136-145) Potassium Level 3.9 mmol/L (3.5-5.1) Chloride Level 104 mmol/L (98-107) Carbon Dioxide Level 27 mmol/L (21-32) Anion Gap 11 (6-14) Blood Urea Nitrogen 17 mg/dL (7-20) Creatinine 1.0 mg/dL (0.6-1.0) Estimated GFR (Cockcroft-Gault) 52.2 BUN/Creatinine Ratio 17 (6-20) Glucose Level 113 mg/dL (70-99) Calcium Level 8.9 mg/dL (8.5-10.1) Total Bilirubin 0.7 mg/dL (0.2-1.0) Aspartate Amino Transf (AST/SGOT) 21 U/L (15-37) Alanine Aminotransferase (ALT/SGPT) 20 U/L (14-59) Alkaline Phosphatase 65 U/L (46-116) Creatine Kinase 45 U/L (26-192) Troponin I Quantitative < 0.017 ng/mL (0.000-0.055) < 0.017 ng/mL (0.000-0.055) < 0.017 ng/mL (0.000-0.055) Total Protein 6.7 g/dL (6.4-8.2) Albumin 3.5 g/dL (3.4-5.0) Albumin/Globulin Ratio 1.1 (1.0-1.7) Thyroid Stimulating Hormone (TSH) 0.890 uIU/mL (0.358-3.74) Urine Collection Type Unknown Urine Color Yellow Urine Clarity Clear Urine pH 6.5 Urine Specific [place] 1.010 Urine Protein Negative mg/dL (NEG-TRACE) Urine Glucose (UA) Negative mg/dL (NEG) Urine Ketones (Stick) Negative mg/dL (NEG) Urine Blood Negative (NEG) Urine Nitrite Negative (NEG) Urine Bilirubin Negative (NEG) Urine Urobilinogen Dipstick 0.2 mg/dL (0.2 mg/dL) Urine Leukocyte Esterase Negative (NEG) Urine RBC 0 /HPF (0-2) Urine WBC 0 /HPF (0-4) Urine Bacteria 0 /HPF (0-FEW) Urine Mucus Slight /LPF Test 03/09/19 04:35 Triglycerides Level 88 mg/dL (0-150) Cholesterol Level 187 mg/dL (0-200) LDL Cholesterol, Calculated 132 mg/dL (0-100) VLDL Cholesterol, Calculated 18 mg/dL (0-40) Non-HDL Cholesterol Calculated 150 mg/dL (0-129) HDL Cholesterol 37 mg/dL (40-60) Cholesterol/HDL Ratio 5.1 Medications Current Medications Tetanus/ Diphtheria Toxoids (Tenivac Syringe) 0.5 ml ONCE ONCE VAX IM Last administered on 03/08/19 12:04; Start 03/08/19 at 10:45; Stop 03/08/19 at 11:23; Status DC Sodium Chloride 1,000 ml @ 100 mls/hr Q10H IV Last administered on 03/09/19at 01:21; Start 03/08/19 at 12:47; Stop 03/09/19 at 09:52; Status DC Clonidine HCl (Catapres) 0.1 mg PRN Q1HR PRN PO HYPERTENSION, SEE COMMENTS Last administered on 03/08/19at 13:47; Start 03/08/19 at 13:00 Hydralazine HCl (Apresoline Inj) 10 mg PRN Q4HRS PRN IVP ELEVATED BP, SEE COMMENTS; Start 03/08/19 at 13:30 Amlodipine Besylate (Norvasc) 5 mg 1X ONCE PO Last administered on 03/08/19 16:04; Start 03/08/19 at 15:15; Stop 03/08/19 at 15:16; Status DC Levothyroxine Sodium (Synthroid) 100 mcg DAILY06 PO Last administered on 03/09/19at 08:59; Start 03/09/19 at 09:00 Sertraline HCl (Zoloft) 100 mg DAILY PO Last administered on 03/09/19 08:59; Start 03/08/19 at 16:00 Famotidine (Pepcid) 20 mg 1X ONCE PO Last administered on 03/08/19 17:41; Start 03/08/19 at 16:30; Stop 03/08/19 at 16:31; Status DC Diphenhydramine HCl (Benadryl) 25 mg 1X ONCE PO Last administered on 03/08/19 17:41; Start 03/08/19 at 16:30; Stop 03/08/19 at 16:31; Status DC Atorvastatin Calcium (Lipitor) 10 mg QHS PO ; Start 03/09/19 at 21:00 Aspirin (Ecotrin) 81 mg DAILYWBKFT PO ; Start 03/09/19 at 12:00 Active Scripts Active Reported Zoloft (Sertraline Hcl) 100 Mg Tablet 1 Tab PO DAILY Levothyroxine Sodium 100 Mcg Tablet 1 Tab PO DAILY Vitals/I & O Vital Sign - Last 24 Hours 03/08/19 03/08/19 03/08/19 03/08/19 11:12 11:29 12:43 13:47 Pulse 84 68 66 73 B/P (MAP) 182/74 Pulse Ox 97 95 97 03/08/19 03/08/19 03/08/19 03/08/19 14:00 14:34 14:36 14:37 Temp 99.5 99.5 Pulse 81 80 86 97 Resp 16 B/P (MAP) 193/80 (117) 175/74 (107) 171/75 (107) 156/72 (100) Pulse Ox 94 O2 Delivery Room Air 03/08/19 03/08/19 03/08/19 03/08/19 16:04 19:22 19:40 22:28 Temp 99.5 98.6 99.5 98.6 Pulse 70 72 80 Resp 18 16 B/P (MAP) 121/61 (81) 134/63 (86) Pulse Ox 97 96 O2 Delivery Room Air Room Air Room Air 03/09/19 03/09/19 03/09/19 03/09/19 03:12 07:00 07:05 07:10 Temp 99.0 98.7 99.0 98.7 Pulse 69 65 67 80 Resp 16 16 16 16 B/P (MAP) 115/65 (82) 111/59 (76) 122/60 (80) 122/59 (80) Pulse Ox 96 95 95 97 O2 Delivery Room Air Room Air Room Air Room Air Intake and Output 03/08/19 03/08/19 03/09/19 15:00 23:00 07:00 Intake Total 250 ml 908 ml Output Total 200 ml 600 ml Balance 50 ml 308 ml LENNY MCWILLIAMS K III DO March 09, 2019 10:49
--- NOTE | 2019-03-09 11:22 | EEG ---
DATE OF SERVICE: 03/09/2019 EEG NUMBER: [id number] ATTENDING PHYSICIAN: Dr. Liat Zaldivar. OBJECTIVE: The patient is an 88-year-old right-handed female who had an episode of syncope yesterday. DESCRIPTION: This is a digital study. Electrodes were placed according to the international 10-20 system. Bipolar and referential montages were available. Activation procedures typically included hyperventilation and intermittent photic stimulation. INTERPRETATION: The waking background consisted of 8-9 Hz, 50-100 microvolt activity, symmetrically distributed over parietooccipital regions and reactive to eye opening. Hyperventilation and intermittent photic stimulation were noncontributory. Stage 1 sleep was achieved with normal electroencephalogram patterns. IMPRESSION: This electroencephalogram with the patient awake and asleep was within normal limits. There was no focal, paroxysmal, or epileptiform activity. Thank you for letting us help with the patient's care. OSWALDO VILLATORO MD DR: LINETTE/charis JOB#: [id number] / [id number]
[2019-03-09] MEDS ORDERED: ASPIRIN ENTERIC COATED 81 MG TABLET.DR. PO SCH (12:00)
--- NOTE | 2019-03-09 14:11 | PDOC ---
PROGRESS NOTES Assessment Problems Medical Problems: (1) Syncope and collapse Status: Acute Syncope, probably vasovagal, EEG and carotid Dopplers unrevealing Mild essential tremor. Note carotid Doppler results, I doubt subclavian steal, no evidence of dizziness related to exertion with arms, flow is both antegrade and retrograde, so this would be an early process anyway, risks outweigh benefits of surgery, therefore. Plan Okay for discharge Management of cellulitis per internal medicine. Follow-up with neurology as needed. Family is wondering if it is safe for the patient to return home alone I said that is fine, but did recommend a life alert device. Subjective Thanks rash on her left arm is worse Objective Vital Signs Date Time Temp Pulse Resp B/P (MAP) Pulse Ox O2 Delivery O2 Flow Rate FiO2 03/09/19 12:02 125/59 (81) 03/09/19 11:00 98.3 68 18 98 Room Air 98.3 Intake and Output 03/09/19 07:00 Intake Total 1158 ml Output Total 800 ml Balance 358 ml Intake Oral 250 ml IV Total 908 ml Output Urine Total 800 ml # Voids 2 # Bowel Movements 1 PHYSICAL EXAM Alert. Oriented to time, place and person. PERRL. EOMI. CN: no focal findings. Muscle tone: normal. Muscle strength: 5/5 DTR: 2+ Plantar reflex: Flexor Gait: not examined in bed. Sensory exam: no abnormal findings. No cerebellar signs elicited. She does have mild postural tremor Review of Relevant I have reviewed the following items clau (where applicable) has been applied. Labs Laboratory Tests Test 03/08/19 11:06 03/08/19 13:25 03/08/19 15:55 03/08/19 18:50 White Blood Count 6.9 x10^3/uL (4.0-11.0) Red Blood Count 4.52 x10^6/uL (3.50-5.40) Hemoglobin 13.3 g/dL (12.0-15.5) Hematocrit 40.5 % (36.0-47.0) Mean Corpuscular Volume 90 fL (79-100) Mean Corpuscular Hemoglobin 29 pg (25-35) Mean Corpuscular Hemoglobin Concent 33 g/dL (31-37) Red Cell Distribution Width 14.2 % (11.5-14.5) Platelet Count 148 x10^3/uL (140-400) Neutrophils (%) (Auto) 79 % (31-73) Lymphocytes (%) (Auto) 10 % (24-48) Monocytes (%) (Auto) 5 % (0-9) Eosinophils (%) (Auto) 5 % (0-3) Basophils (%) (Auto) 1 % (0-3) Neutrophils # (Auto) 5.5 x10^3uL (1.8-7.7) Lymphocytes # (Auto) 0.7 x10^3/uL (1.0-4.8) Monocytes # (Auto) 0.3 x10^3/uL (0.0-1.1) Eosinophils # (Auto) 0.3 x10^3/uL (0.0-0.7) Basophils # (Auto) 0.1 x10^3/uL (0.0-0.2) Sodium Level 142 mmol/L (136-145) Potassium Level 3.9 mmol/L (3.5-5.1) Chloride Level 104 mmol/L (98-107) Carbon Dioxide Level 27 mmol/L (21-32) Anion Gap 11 (6-14) Blood Urea Nitrogen 17 mg/dL (7-20) Creatinine 1.0 mg/dL (0.6-1.0) Estimated GFR (Cockcroft-Gault) 52.2 BUN/Creatinine Ratio 17 (6-20) Glucose Level 113 mg/dL (70-99) Calcium Level 8.9 mg/dL (8.5-10.1) Total Bilirubin 0.7 mg/dL (0.2-1.0) Aspartate Amino Transf (AST/SGOT) 21 U/L (15-37) Alanine Aminotransferase (ALT/SGPT) 20 U/L (14-59) Alkaline Phosphatase 65 U/L (46-116) Creatine Kinase 45 U/L (26-192) Troponin I Quantitative < 0.017 ng/mL (0.000-0.055) < 0.017 ng/mL (0.000-0.055) < 0.017 ng/mL (0.000-0.055) Total Protein 6.7 g/dL (6.4-8.2) Albumin 3.5 g/dL (3.4-5.0) Albumin/Globulin Ratio 1.1 (1.0-1.7) Thyroid Stimulating Hormone (TSH) 0.890 uIU/mL (0.358-3.74) Urine Collection Type Unknown Urine Color Yellow Urine Clarity Clear Urine pH 6.5 Urine Specific [place] 1.010 Urine Protein Negative mg/dL (NEG-TRACE) Urine Glucose (UA) Negative mg/dL (NEG) Urine Ketones (Stick) Negative mg/dL (NEG) Urine Blood Negative (NEG) Urine Nitrite Negative (NEG) Urine Bilirubin Negative (NEG) Urine Urobilinogen Dipstick 0.2 mg/dL (0.2 mg/dL) Urine Leukocyte Esterase Negative (NEG) Urine RBC 0 /HPF (0-2) Urine WBC 0 /HPF (0-4) Urine Bacteria 0 /HPF (0-FEW) Urine Mucus Slight /LPF Test 03/09/19 04:35 Triglycerides Level 88 mg/dL (0-150) Cholesterol Level 187 mg/dL (0-200) LDL Cholesterol, Calculated 132 mg/dL (0-100) VLDL Cholesterol, Calculated 18 mg/dL (0-40) Non-HDL Cholesterol Calculated 150 mg/dL (0-129) HDL Cholesterol 37 mg/dL (40-60) Cholesterol/HDL Ratio 5.1 Laboratory Tests Test 03/08/19 15:55 03/08/19 18:50 03/09/19 04:35 Troponin I Quantitative < 0.017 ng/mL (0.000-0.055) < 0.017 ng/mL (0.000-0.055) Triglycerides Level 88 mg/dL (0-150) Cholesterol Level 187 mg/dL (0-200) LDL Cholesterol, Calculated 132 mg/dL (0-100) VLDL Cholesterol, Calculated 18 mg/dL (0-40) Non-HDL Cholesterol Calculated 150 mg/dL (0-129) HDL Cholesterol 37 mg/dL (40-60) Cholesterol/HDL Ratio 5.1 Medications Current Medications Tetanus/ Diphtheria Toxoids (Tenivac Syringe) 0.5 ml ONCE ONCE VAX IM Last administered on 03/08/19at 12:04; Start 03/08/19 at 10:45; Stop 03/08/19 at 11:23; Status DC Sodium Chloride 1,000 ml @ 100 mls/hr Q10H IV Last administered on 03/09/19at 01:21; Start 03/08/19 at 12:47; Stop 03/09/19 at 09:52; Status DC Clonidine HCl (Catapres) 0.1 mg PRN Q1HR PRN PO HYPERTENSION, SEE COMMENTS Last administered on 03/08/19at 13:47; Start 03/08/19 at 13:00 Hydralazine HCl (Apresoline Inj) 10 mg PRN Q4HRS PRN IVP ELEVATED BP, SEE COMMENTS; Start 03/08/19 at 13:30 Amlodipine Besylate (Norvasc) 5 mg 1X ONCE PO Last administered on 03/08/19at 16:04; Start 03/08/19 at 15:15; Stop 03/08/19 at 15:16; Status DC Levothyroxine Sodium (Synthroid) 100 mcg DAILY06 PO Last administered on 03/09/19at 08:59; Start 03/09/19 at 09:00 Sertraline HCl (Zoloft) 100 mg DAILY PO Last administered on 03/09/19at 08:59; Start 03/08/19 at 16:00 Famotidine (Pepcid) 20 mg 1X ONCE PO Last administered on 03/08/19at 17:41; Start 03/08/19 at 16:30; Stop 03/08/19 at 16:31; Status DC Diphenhydramine HCl (Benadryl) 25 mg 1X ONCE PO Last administered on 03/08/19at 17:41; Start 03/08/19 at 16:30; Stop 03/08/19 at 16:31; Status DC Atorvastatin Calcium (Lipitor) 10 mg QHS PO ; Start 03/09/19 at 21:00 Aspirin (Ecotrin) 81 mg DAILYWBKFT PO Last administered on 03/09/19at 12:12; Start 03/09/19 at 12:00 Active Scripts Active Reported Zoloft (Sertraline Hcl) 100 Mg Tablet 1 Tab PO DAILY Levothyroxine Sodium 100 Mcg Tablet 1 Tab PO DAILY Vitals/I & O Vital Sign - Last 24 Hours 03/08/19 03/08/19 03/08/19 03/08/19 14:34 14:36 14:37 16:04 Pulse 80 86 97 70 B/P (MAP) 175/74 (107) 171/75 (107) 156/72 (100) 03/08/19 03/08/19 03/08/19 03/09/19 19:22 19:40 22:28 03:12 Temp 99.5 98.6 99.0 99.5 98.6 99.0 Pulse 72 80 69 Resp 18 16 16 B/P (MAP) 121/61 (81) 134/63 (86) 115/65 (82) Pulse Ox 97 96 96 O2 Delivery Room Air Room Air Room Air Room Air 03/09/19 03/09/19 03/09/19 03/09/19 07:00 07:05 07:10 08:00 Temp 98.7 98.7 Pulse 65 67 80 Resp 16 16 16 B/P (MAP) 111/59 (76) 122/60 (80) 122/59 (80) Pulse Ox 95 95 97 O2 Delivery Room Air Room Air Room Air Room Air 03/09/19 03/09/19 03/09/19 11:00 12:01 12:02 Temp 98.3 98.3 Pulse 68 Resp 18 B/P (MAP) 122/55 (77) 130/60 (83) 125/59 (81) Pulse Ox 98 O2 Delivery Room Air Intake and Output 03/08/19 03/08/19 03/09/19 15:00 23:00 07:00 Intake Total 250 ml 908 ml Output Total 200 ml 600 ml Balance 50 ml 308 ml Images Carotid ultrasound, 03/08/2019: History: Syncope Duplex evaluation of the carotid arteries in neck was performed including grayscale, color-flow and spectral Doppler analysis. There is mild smooth plaquing at the carotid bifurcations, more so on the right. The peak systolic velocity in the right internal carotid artery is 80 cm/s with an end-diastolic velocity of 22 cm/s and internal carotid to common carotid artery ratio 1.3. The peak systolic velocity in the left internal carotid artery is 97 cm per sec with an end-diastolic velocity of 23 cm/s and an internal carotid to common carotid artery ratio 1.2. These Doppler findings suggest luminal narrowing in the 0-50% diameter range. Antegrade flow is present in the right vertebral artery in the neck. The left vertebral artery demonstrates a combination of antegrade and retrograde flow. This raises the possibility of a developing subclavian steal phenomenon on the left. IMPRESSION: 1. Mild atherosclerotic plaquing at both carotid bifurcations with underlying luminal narrowing in the 0-50% diameter range bilaterally. 2. Abnormal left vertebral Doppler waveform raising the possibility of a developing subclavian steal phenomenon. OSWALDO VILLATORO MD March 09, 2019 14:11
--- NOTE | 2019-03-09 14:32 | NUR ---
SS following for discharge planning. SS reviewed pt chart. Pt is from home alone and is currently on room air. PT evaluated pt and recommended home healthcare. SS will continue to follow for discharge planning.
--- NOTE | 2019-03-09 15:53 | NUR ---
Wound care: Patient seen per wound care consult. Patient has intact blister and puncture site from unknown origin. Wound cleansed and assessed. Recommendations for skin prep and leave open to air to monitor area. Blister is serum filled and intact with redness to jaimee-wound. Skin prep applied. No other wounds noted. Will monitor wound. Redness is outlined at this time. Arm elevated using pillows. Call light in reach and bed lowered. Will follow patient. Family at bedside.
[2019-03-09] MEDS ORDERED: CEPHALEXIN 250 MG CAPSULE. PO SCH (16:00)
--- NOTE | 2019-03-09 18:29 | NUR ---
Discharge Note: DUC RO Discharge instructions and discharge home medications reviewed with Patient and a copy given. All questions have been answered and understanding verbalized. The following instructions and handouts were given: Syncope Discontinued lines and drains: Peripheral IV intact. Patient discharged to Home w/services with Family Member via Wheelchair walked out by RN Home Health set up pior to discharge with [facility], information faxed over by RN
[2019-03-09] MEDS ORDERED: ATORVASTATIN CALCIUM 10 MG TABLET. PO SCH (21:00)
== END 2019-03-09 18:41 | disposition home health service (06) | DRG 74 ==
LOC: ER 10:25 → 2 NORTH 12:47
PROVIDERS: ADMIT Internal Medicine; ATTEND Internal Medicine
DX: G90.8 Other disorders of autonomic nervous system (principal); S61.511A Laceration without foreign body of right wrist, initial encounter; S01.511A Laceration without foreign body of lip, initial encounter; S40.212A Abrasion of left shoulder, initial encounter; E03.9 Hypothyroidism, unspecified; F41.9 Anxiety disorder, unspecified; F32.9 Major depressive disorder, single episode, unspecified; M19.90 Unspecified osteoarthritis, unspecified site; I10 Essential (primary) hypertension; G25.0 Essential tremor; W18.39XA Other fall on same level, initial encounter; Z90.710 Acquired absence of both cervix and uterus; Z90.49 Acquired absence of other specified parts of digestive tract; Z88.0 Allergy status to penicillin; Y93.89 Activity, other specified; Y92.89 Other specified places as the place of occurrence of the external cause; Y99.8 Other external cause status
CPT/HCPCS: 36415; 70450; 70486; 71045; 72125; 80053; 80061; 81001; 82550; 84443; 84484; 85025; 90471; 90714; 93005; 93306; 93880; 95816; J7030; Q0163; 99285-25